=== PATIENT | female | born 1995 | race Caucasian/White ===

== ENCOUNTER 2016-12-06 00:03 | Emergency (ER) | payer OTHER ==
[~2016-12-06] VITALS: Ht 167.6 cm; Wt 79.9 kg
[2016-12-06 00:07] VITALS: Ht 167.6 cm; Wt 79.9 kg
[2016-12-06] MEDS ORDERED: ACETAMINOPHEN 500 MG TAB PO STA (00:27)
[2016-12-06] MEDS ORDERED: BCPILLS PO (00:28)
[2016-12-06] MEDS ORDERED: ESCI1TAB10 PO (00:28)
[2016-12-06] MEDS ORDERED: ACETAMINOPHEN 500 MG TAB PO ONE (00:37)
[2016-12-06] MEDS ORDERED: MoRPHine SULFATE 4 MG/ML 1 ML CARP\\VIAL IV STA (00:41)
[2016-12-06] MEDS ORDERED: SODIUM CHLORIDE 0.9% 1000ML 2,000 ML IV STA (00:41)
[2016-12-06] MEDS ORDERED: KETOROLAC TROMETHAMINE 30 MG/ML VIAL IV STA (00:41)
[2016-12-06] MEDS ORDERED: AMPICILLIN/SULBACTAM SOD INJ 3,000 MG in SODIUM CHLORIDE 0.9% 100ML 100 ML IV ONE (00:45)
[2016-12-06] MEDS ORDERED: DEXAMETHASONE SOD INJ 10 MG/ML VIAL IV ONE (00:45)
[2016-12-06 00:59] LABS: BASO % 0.1 %; BASO ABS # 0.02 K/uL (0-0.2); COMPLETE YES; EOS % 0.1 %; HEMATOCRIT 37.3 % (37-47); IG% 0.3 %; LYMPH % 6.8 %; LYMPH ABS # 1.14 K/uL (1.2-3.4); MEAN CELL VOLUME 88.8 fL (80-100); MEAN CORPUSCULAR HEMOGLOBIN 30.7 pg (25-34); MEAN CORPUSCULAR HGB CONC 34.6 g/dl (32-36); MEAN PLATELET VOLUME 10.6 fL (7.4-10.4); MONO % 5.7 %; PLATELET COUNT 211 K/uL (130-400); WHITE BLOOD COUNT 16.74 K/uL (4.8-10.8)
[2016-12-06 01:23] LABS: BUN/CREATININE RATIO 10.3 (10-20); CALCIUM 9.5 mg/dl (8.5-10.1); CREATININE 0.86 mg/dl (0.60-1.20); POTASSIUM 3.4 mmol/L (3.5-5.1)
[2016-12-06 01:50] VITALS: TEMP 37.5
[2016-12-06] MEDS ORDERED: PERCOCET HOME PACK PO ONE (02:15)
--- NOTE | 2016-12-06 02:15 | EMERGENCY ROOM VISIT NOTE ---
History Report prepared by Fredy: aPul Nunez Under the Supervision of: Dr. Chad Tello D.O. First contact with patient: 00:36 Chief Complaint: THROAT PAIN/INJURY Stated Complaint: SWOLLEN TONSILS History of Present Illness The patient is a 21 year old female who presents to the Emergency Room with complaints of a worsening sore throat beginning about 2 days ago. She went to [facility] today and was diagnosed with strep. Tonight, she has had difficulty breathing which is what brought her to the ER. The patient was given Amoxicillin and clavulanate potassium tablets from [facility]. Source of History: patient Onset: 2 days ago Position: throat Quality: other (sore throat) Timing: worsening Associated Symptoms: + SOB Review of Systems See HPI for pertinent positives & negatives. A total of 10 systems reviewed and were otherwise negative. Past Medical & Surgical Medical Problems: (1) No Known Active Medical Problems Family History No pertinent family history stated. Social History Smoking Status: Never Smoker Current/Historical Medications Scheduled Control Pills ( Control Pills), 1 TAB PO DAILY Escitalopram Oxalate (Lexapro), 20 MG PO DAILY Allergies Coded Allergies: No Known Allergies (Unverified , 12/06/16) Physical Exam Vital Signs Date Time Temp Pulse Resp B/P Pulse Ox O2 Delivery O2 Flow Rate FiO2 12/06/16 01:50 37.5 101 18 107/63 95 Room Air 12/06/16 00:40 137 12/06/16 00:33 Room Air 99 12/06/16 00:07 39.4 147 26 121/77 98 Room Air Physical Exam CONSTITUTIONAL/VITAL SIGNS: Reviewed / noted above. GENERAL: Non-toxic in appearance. INTEGUMENTARY: Warm, dry, and [place]. HEAD: Normocephalic. EYES: without scleral icterus or trauma. ENT/OROPHARYNX: Posterior oropharyngeal erythema and edema and some exudate. No obvious abscess. There is slight asymmetry with the left being slightly larger than the right. LYMPHADENOPATHY/NECK: Tender anterior lymphadenopathy. RESPIRATORY: Lungs clear and equal. CARDIOVASCULAR: Tachycardic rate and regular rhythm. GI/ABDOMEN: Soft and nontender. No organomegaly or pulsatile mass. No rebound or guarding. Normal bowel sounds. EXTREMITIES: Warm and well perfused. BACK: No CVA tenderness. NEUROLOGICAL: Intact without focal deficits. PSYCHIATRIC: normal affect. MUSCULOSKELETAL: Normally developed with good muscle tone. Medical Decision & Procedures Laboratory Results 12/06/16 00:35 Red Blood Count 4.20, Mean Corpuscular Volume 88.8, Mean Corpuscular Hemoglobin 30.7, Mean Corpuscular Hemoglobin Concent 34.6, Mean Platelet Volume 10.6, Neutrophils (%) (Auto) 87.0, Lymphocytes (%) (Auto) 6.8, Monocytes (%) (Auto) 5.7, Eosinophils (%) (Auto) 0.1, Basophils (%) (Auto) 0.1, Neutrophils # (Auto) 14.57, Lymphocytes # (Auto) 1.14, Monocytes # (Auto) 0.95, Eosinophils # (Auto) 0.01, Basophils # (Auto) 0.02 12/06/16 00:35 Test 12/06/16 00:35 White Blood Count 16.74 K/uL (4.8-10.8) Red Blood Count 4.20 M/uL (4.2-5.4) Hemoglobin 12.9 g/dL (12.0-16.0) Hematocrit 37.3 % (37-47) Mean Corpuscular Volume 88.8 fL (80-100) Mean Corpuscular Hemoglobin 30.7 pg (25-34) Mean Corpuscular Hemoglobin Concent 34.6 g/dl (32-36) Platelet Count 211 K/uL (130-400) Mean Platelet Volume 10.6 fL (7.4-10.4) Neutrophils (%) (Auto) 87.0 % Lymphocytes (%) (Auto) 6.8 % Monocytes (%) (Auto) 5.7 % Eosinophils (%) (Auto) 0.1 % Basophils (%) (Auto) 0.1 % Neutrophils # (Auto) 14.57 K/uL (1.4-6.5) Lymphocytes # (Auto) 1.14 K/uL (1.2-3.4) Monocytes # (Auto) 0.95 K/uL (0.11-0.59) Eosinophils # (Auto) 0.01 K/uL (0-0.5) Basophils # (Auto) 0.02 K/uL (0-0.2) RDW Standard Deviation 42.9 fL (36.4-46.3) RDW Coefficient of Variation 13.2 % (11.5-14.5) Immature Granulocyte % (Auto) 0.3 % Immature Granulocyte # (Auto) 0.05 K/uL (0.00-0.02) Anion Gap 12.0 mmol/L (3-11) Est Creatinine Clear Calc Drug Dose 111.2 ml/min Estimated GFR () 112.7 Estimated GFR (Non- 97.3 BUN/Creatinine Ratio 10.3 (10-20) Calcium Level 9.5 mg/dl (8.5-10.1) Laboratory results as stated above per my review. Medications Administered Medications (Trade) Dose Ordered Sig/Manjinder Route Start Time Stop Time Status Last Admin Dose Admin Acetaminophen 1000 mg 1,000 mg NOW STAT PO 12/06/16 00:27 12/06/16 00:30 DC 12/06/16 00:36 1,000 MG Ampicillin Sodium/ Sulbactam Sodium 3000 mg/Sodium Chloride 108 ml @ 200 mls/hr ONE ONCE IV 12/06/16 00:45 12/06/16 01:17 DC 12/06/16 01:02 200 MLS/HR Sodium Chloride (Nss 1000ml) 2,000 ml @ 999 mls/hr Q2H1M STAT IV 12/06/16 00:41 12/06/16 02:41 12/06/16 00:51 999 MLS/HR Ketorolac Tromethamine (Toradol Inj) 30 mg NOW STAT IV 12/06/16 00:41 12/06/16 00:44 DC 12/06/16 00:52 30 MG Dexamethasone Sodium Phosphate (Decadron Inj) 10 mg NOW ONCE IV 12/06/16 00:45 12/06/16 00:46 DC 12/06/16 00:53 10 MG Morphine Sulfate (MoRPHine SULFATE INJ) 4 mg NOW STAT IV 12/06/16 00:41 12/06/16 00:44 DC 12/06/16 00:54 4 MG ED Course 0037: Previous medical records were reviewed. The patient was evaluated in room B8. A complete history and physical examination was performed. 0041: Ordered Morphine Sulfate 4 mg IV, Toradol Inj 30 mg IV, and NSS 2,000 ml @ 999 mls/hr IV. 0045: Ordered Decadron Inj 10 mg IV, and Ampicillin Sodium.Sulbactam Sodium 3, 000 mg /Sodium Chloride 108 ml @ 200 mls/hr IV. 0215: On reevaluation, the patient is doing well. I discussed the results and findings with the patient. She verbalized agreement of the treatment plan. The patient was discharged home. Medical Decision Differential includes viral illness, influenza, streptococcal pharyngitis, meningitis, pneumonia, sinusitis, UTI, pyelonephritis, otitis media. Is a 21-year-old female who presents to the ED with a chief complaint of a sore throat and a sensation that her throat is swelling shut. The patient was seen earlier at [facility] and had a positive strep test. She was started on Augmentin. She has had one dose. The patient states that she has had a sore throat for the past 2 days. Her symptoms worsen this evening and she came in for evaluation. On her initial assessment, she was tachycardic with a heart rate of 147 and a fever of 39.4. Her exam reveals findings suggestive of acute streptococcal pharyngitis. She does have a very mildly slight asymmetry with slightly more edema on the left peritonsillar region on the right. There is no deviation of the uvula. This could be suggestive of an early peritonsillar abscess. She does not have a hot potato voice. There appears to be no evidence of impending airway obstruction and she is able to swallow her saliva. She has some tender anterior lymphadenopathy. The rest of the exam was unremarkable with exception of the tachycardia. The patient was treated with IV fluids, IV Toradol, IV morphine, IV Unasyn, by mouth Tylenol and IV Decadron. On reassessment, the patient's tachycardia improved. Her heart rate was 101 and her temperature was 37.5. The patient was told the results. She is felt to be stable for discharge. She was given a Percocet home pack for discomfort. She was told to take ibuprofen for pain. She'll continue her Augmentin. She was given a referral to Dr. Cobb because of the slight asymmetry. This is in case she is developing a peritonsillar abscess. At this point she is felt to be stable for discharge and she is much more comfortable. Impression Primary Impression: Acute streptococcal pharyngitis Scribe Attestation The scribe's documentation has been prepared under my direction and personally reviewed by me in its entirety. I confirm that the note above accurately reflects all work, treatment, procedures, and medical decision making performed by me. Departure Information Dispostion Home / Self-Care Referrals No Doctor, Assigned (PCP) Poppy Cobb M.D. Patient Instructions ED Strep Pharyngitis Conf, [facility] Additional Instructions Follow-up with Dr. Cobb for recheck later this week. Call for an appointment tomorrow. Continue Augmentin. Take 1 Percocet every 6 hours as needed for discomfort. No driving within 6 hours of use.
[2016-12-06 02:25] VITALS: BP 113/60; PULSE 99; O2SAT 99
== END 2016-12-06 02:25 | disposition home or self-care (01) ==
LOC: EDSEX → C.EDB 00:04
DX: J02.0 Streptococcal pharyngitis (principal)

== ENCOUNTER → 2017-08-04 | Outpatient (CLI) | payer OTHER ==
[~2017-08-04] MED LIST: BCPILLS PO; ESCI1TAB10 PO
== END | disposition home or self-care (01) ==
LOC: C.LAB 19:49 → EDSEX 19:49
PROVIDERS: ATTEND Anesthesiology
DX: D50.8 Other iron deficiency anemias (principal)